=== PATIENT | male | born 1975 | race Caucasian/White ===

== ENCOUNTER 2018-09-05 12:10 | Inpatient (IN) | payer SELFPAY ==
[~2018-09-05] VITALS: Ht 167.6 cm; Wt 66.2 kg
[2018-09-05] MEDS ORDERED: [UNRECOGNIZED DRUG - CODE] IV (12:44)
[2018-09-05] MEDS ORDERED: MULTIVITAMIN1 SGL PO (12:46)
[2018-09-05] MEDS ORDERED: FOLIC ACID1 MG PO (12:46)
[2018-09-05] MEDS ORDERED: B-1100 M1 PO (12:46)
[2018-09-05 12:47] VITALS: BP 106/71
[2018-09-05 18:20] VITALS: BP 114/75
[2018-09-05 18:22] VITALS: BP 114/75
[2018-09-05 18:33] VITALS: BP 114/75
[2018-09-06 06:26] VITALS: BP 124/80
[2018-09-06 07:27] LABS: HEMATOCRIT 28.2 % (42.0-52.0); HEMOGLOBIN 9.2 g/dL (13.5-18.0); MEAN CELL VOLUME 105 fl (78-100); MEAN CORPUSCULAR HEMOGLOBIN 34 pg (27-31); MEAN CORPUSCULAR HGB CONC 33 g/dL (33-37); MEAN PLATELET VOLUME 9.1 fl (7.4-10.4); PLATELET COUNT 495 K/mm3 (130-400); RED BLOOD COUNT 2.68 M/mm3 (4.20-5.60); RED CELL DISTRIBUTION WIDTH 13.7 % (11.5-14.5); WHITE BLOOD COUNT 6.6 K/mm3 (4.8-10.8)
[2018-09-06 07:35] LABS: ALBUMIN 3.2 g/dL (3.5-5.0); CALCIUM 9.4 mg/dL (8.4-10.2); POTASSIUM 4.5 mmol/L (3.6-5.0); TOTAL BILIRUBIN 0.4 mg/dL (0.2-1.3); TOTAL PROTEIN 6.2 g/dL (6.3-8.2)
[2018-09-06 08:13] LABS: LYMPHOCYTE 23 % (20-51); MONOCYTE 16 % (3-10); NEUTROPHILS 59 % (42-75)
[2018-09-06 08:14] LABS: PH-URINE 7.5 (5.0 - 8.0); URINE APPEARANCE CLEAR; URINE BILIRUBIN NEGATIVE (NEGATIVE); URINE BLOOD NEGATIVE (NEGATIVE); URINE COLOR YELLOW; URINE GLUCOSE NEGATIVE (NEGATIVE); URINE KETONE NEGATIVE (NEGATIVE); URINE LEUKOCYTE ESTERASE NEGATIVE (NEGATIVE); URINE NITRATE NEGATIVE (NEGATIVE); URINE PROTEIN(semi-quant) NEGATIVE (NEGATIVE); URINE UROBILINOGEN NORMAL (NORMAL)
[2018-09-06 18:50] VITALS: BP 130/93
[2018-09-07 06:23] VITALS: BP 102/63
[2018-09-07 18:33] VITALS: BP 107/70
[2018-09-08 06:17] VITALS: BP 105/65
[2018-09-08 13:31] VITALS: BP 106/65
[2018-09-08 14:01] LABS: HEMATOCRIT 30.4 % (42.0-52.0); HEMOGLOBIN 9.8 g/dL (13.5-18.0); MEAN CELL VOLUME 106 fl (78-100); MEAN CORPUSCULAR HEMOGLOBIN 34 pg (27-31); MEAN CORPUSCULAR HGB CONC 32 g/dL (33-37); MEAN PLATELET VOLUME 8.8 fl (7.4-10.4); RED BLOOD COUNT 2.87 M/mm3 (4.20-5.60); RED CELL DISTRIBUTION WIDTH 13.8 % (11.5-14.5); WHITE BLOOD COUNT 5.3 K/mm3 (4.8-10.8)
[2018-09-08 14:06] LABS: ALBUMIN 3.5 g/dL (3.5-5.0); CALCIUM 9.5 mg/dL (8.4-10.2); POTASSIUM 4.4 mmol/L (3.6-5.0); TOTAL BILIRUBIN 0.4 mg/dL (0.2-1.3); TOTAL PROTEIN 6.5 g/dL (6.3-8.2)
[2018-09-08 15:09] LABS: PLATELET COUNT 579 K/mm3 (130-400)
[2018-09-08 15:19] LABS: LYMPHOCYTE 21 % (20-51); MONOCYTE 9 % (3-10); NEUTROPHILS 69 % (42-75)
[2018-09-08 15:48] VITALS: BP 125/74
[2018-09-08 18:11] VITALS: BP 100/62
[2018-09-09 06:11] VITALS: BP 111/68
[2018-09-09 06:27] VITALS: BP 111/68
[2018-09-09 18:16] VITALS: BP 113/69
[2018-09-09 18:48] VITALS: BP 110/64
[2018-09-10 06:03] VITALS: BP 107/62
[2018-09-10 06:24] VITALS: BP 107/62
[2018-09-10 18:48] VITALS: BP 103/65
[2018-09-11 06:05] VITALS: BP 114/74
[2018-09-11 06:08] VITALS: BP 114/74
[2018-09-11 08:58] LABS: HEMATOCRIT 33.5 % (42.0-52.0); HEMOGLOBIN 10.6 g/dL (13.5-18.0); MEAN CELL VOLUME 103 fl (78-100); MEAN CORPUSCULAR HEMOGLOBIN 33 pg (27-31); MEAN CORPUSCULAR HGB CONC 32 g/dL (33-37); MEAN PLATELET VOLUME 8.3 fl (7.4-10.4); RED BLOOD COUNT 3.24 M/mm3 (4.20-5.60); RED CELL DISTRIBUTION WIDTH 13.7 % (11.5-14.5); WHITE BLOOD COUNT 4.5 K/mm3 (4.8-10.8)
[2018-09-11 09:00] LABS: PLATELET COUNT 589 K/mm3 (130-400)
[2018-09-11 09:20] LABS: ALBUMIN 3.7 g/dL (3.5-5.0); CALCIUM 9.6 mg/dL (8.4-10.2); POTASSIUM 4.1 mmol/L (3.6-5.0); TOTAL BILIRUBIN 0.5 mg/dL (0.2-1.3); TOTAL PROTEIN 6.9 g/dL (6.3-8.2)
[2018-09-11 09:35] LABS: LYMPHOCYTE 32 % (20-51); MONOCYTE 11 % (3-10); NEUTROPHILS 55 % (42-75); OVALOCYTES 1+; STOMATOCYTE 2+
[2018-09-11 18:11] VITALS: BP 116/72
[2018-09-11 20:39] VITALS: BP 89/54
[2018-09-11 21:48] LABS: URINE APPEARANCE CLEAR; URINE BILIRUBIN NEGATIVE (NEGATIVE); URINE BLOOD NEGATIVE (NEGATIVE); URINE COLOR YELLOW; URINE GLUCOSE NEGATIVE (NEGATIVE); URINE KETONE NEGATIVE (NEGATIVE); URINE LEUKOCYTE ESTERASE NEGATIVE (NEGATIVE); URINE NITRATE NEGATIVE (NEGATIVE); URINE PROTEIN(semi-quant) NEGATIVE (NEGATIVE); URINE UROBILINOGEN NORMAL (NORMAL)
[2018-09-11 21:56] LABS: URINE WBC 0-1 /hpf (0-3)
[2018-09-12 06:11] VITALS: BP 115/63
[2018-09-12 18:00] VITALS: BP 111/66
[2018-09-12 19:00] VITALS: BP 115/72
[2018-09-13 06:02] VITALS: BP 107/63
[2018-09-13 06:21] VITALS: BP 107/63
[2018-09-13 18:18] VITALS: BP 109/68
[2018-09-13 18:21] VITALS: BP 109/68
[2018-09-14 05:28] VITALS: BP 106/61
[2018-09-14 06:23] VITALS: BP 91/60
[2018-09-14 18:26] VITALS: BP 110/64; BP 131/75
[2018-09-15 06:06] VITALS: BP 117/70
[2018-09-15 06:38] VITALS: BP 117/70
[2018-09-15 18:20] VITALS: BP 115/64
[2018-09-15 18:37] VITALS: BP 115/64
[2018-09-16 06:09] VITALS: BP 105/67
[2018-09-16 06:23] VITALS: BP 105/67
[2018-09-16 16:38] VITALS: BP 124/77
[2018-09-16 18:44] VITALS: BP 117/72
[2018-09-16 19:27] LABS: HEMATOCRIT 34.9 % (42.0-52.0); HEMOGLOBIN 11.2 g/dL (13.5-18.0); MEAN CELL VOLUME 103 fl (78-100); MEAN CORPUSCULAR HEMOGLOBIN 33 pg (27-31); MEAN CORPUSCULAR HGB CONC 32 g/dL (33-37); MEAN PLATELET VOLUME 9.6 fl (7.4-10.4); PLATELET COUNT 375 K/mm3 (130-400); RED BLOOD COUNT 3.38 M/mm3 (4.20-5.60); RED CELL DISTRIBUTION WIDTH 13.2 % (11.5-14.5); WHITE BLOOD COUNT 4.8 K/mm3 (4.8-10.8)
[2018-09-16 19:32] LABS: ALBUMIN 4.3 g/dL (3.5-5.0); CALCIUM 9.5 mg/dL (8.4-10.2); POTASSIUM 4.8 mmol/L (3.6-5.0); TOTAL BILIRUBIN 0.3 mg/dL (0.2-1.3); TOTAL PROTEIN 7.6 g/dL (6.3-8.2)
[2018-09-16 21:54] LABS: NEUTROPHILS 60 % (42-75)
[2018-09-16 21:55] LABS: LYMPHOCYTE 26 % (20-51); MONOCYTE 11 % (3-10)
[2018-09-17 05:58] VITALS: BP 121/73
[2018-09-17 18:00] VITALS: BP 123/74
[2018-09-18 05:46] VITALS: BP 149/91
[2018-09-18 06:23] VITALS: BP 149/91
[2018-09-18 15:21] LABS: ADRENOCORTICOTROPIC HORMONE 24 pg/mL (())
[2018-09-18 18:00] VITALS: BP 115/74
[2018-09-18 18:22] VITALS: BP 107/69
[2018-09-19 06:15] VITALS: BP 120/78
[2018-09-19 06:22] VITALS: BP 120/78
[2018-09-19 17:48] VITALS: BP 113/71
[2018-09-19 18:03] VITALS: BP 113/71
[2018-09-20 06:17] VITALS: BP 106/66
[2018-09-20 06:18] VITALS: BP 106/66
[2018-09-20 17:45] VITALS: BP 118/75; BP 188/75
[2018-09-21 05:07] VITALS: BP 108/64
[2018-09-21 06:06] VITALS: BP 108/64
[2018-09-21 18:15] VITALS: BP 114/73
[2018-09-21 18:16] VITALS: BP 114/73
[2018-09-22 06:00] VITALS: BP 104/55
[2018-09-22 06:25] VITALS: BP 104/55
[2018-09-22 06:54] LABS: HEMATOCRIT 34.9 % (42.0-52.0); MEAN CELL VOLUME 104 fl (78-100); MEAN CORPUSCULAR HEMOGLOBIN 33 pg (27-31); MEAN CORPUSCULAR HGB CONC 32 g/dL (33-37); MEAN PLATELET VOLUME 9.5 fl (7.4-10.4); PLATELET COUNT 311 K/mm3 (130-400); RED BLOOD COUNT 3.36 M/mm3 (4.20-5.60); RED CELL DISTRIBUTION WIDTH 12.6 % (11.5-14.5); WHITE BLOOD COUNT 5.4 K/mm3 (4.8-10.8)
[2018-09-22 07:49] LABS: CALCIUM 9.5 mg/dL (8.4-10.2); POTASSIUM 4.5 mmol/L (3.6-5.0)
[2018-09-22 08:04] LABS: LYMPHOCYTE 31 % (20-51); MONOCYTE 7 % (3-10); NEUTROPHILS 57 % (42-75)
[2018-09-22 18:00] VITALS: BP 117/69
[2018-09-22 18:02] VITALS: BP 117/69
[2018-09-23 05:55] VITALS: BP 119/68
[2018-09-23 06:22] VITALS: BP 119/68
[2018-09-23 18:08] VITALS: BP 125/76
[2018-09-23 18:10] VITALS: BP 125/76
[2018-09-24 06:32] VITALS: BP 112/67
[2018-09-24 06:37] VITALS: BP 112/67
[2018-09-24 18:14] VITALS: BP 133/76
[2018-09-25 06:06] VITALS: BP 119/70
[2018-09-25 18:18] VITALS: BP 113/67
[2018-09-26 06:06] VITALS: BP 107/66
[2018-09-26 06:30] VITALS: BP 107/66
[2018-09-26 18:39] VITALS: BP 121/77
[2018-09-27 05:58] VITALS: BP 115/71
[2018-09-27 06:21] VITALS: BP 115/71
[2018-09-27 18:01] VITALS: BP 121/70
[2018-09-27 18:22] VITALS: BP 121/70
[2018-09-28 06:12] VITALS: BP 112/66
[2018-09-28 18:38] VITALS: BP 127/72
[2018-09-28 18:39] VITALS: BP 122/74
[2018-09-29 06:11] VITALS: BP 118/78
[2018-09-29 06:20] VITALS: BP 118/78
[2018-09-29 18:00] VITALS: BP 114/69
[2018-09-29 19:18] VITALS: BP 114/69
[2018-09-30 06:19] VITALS: BP 118/70
[2018-09-30 06:23] VITALS: BP 118/70
[2018-09-30] MEDS ORDERED: FLORINEF 00.1 MG/TAB PO (14:50)
[2018-09-30 18:06] VITALS: BP 126/80
[2018-09-30 18:08] VITALS: BP 126/80
== END 2018-09-30 20:13 | disposition home or self-care (01) | DRG 947 ==
LOC: MED/SURG 12:10
PROVIDERS: Internal Medicine; ADMIT Nurse Practitioner Primary Care
DX: R53.81 Other malaise (principal); E43 Unspecified severe protein-calorie malnutrition; A52.3 Neurosyphilis, unspecified; Z68.1 Body mass index [BMI] 19.9 or less, adult; R62.7 Adult failure to thrive; F10.20 Alcohol dependence, uncomplicated; Z91.81 History of falling; F17.210 Nicotine dependence, cigarettes, uncomplicated; I95.1 Orthostatic hypotension
CPT/HCPCS: J0834; J1650; J2540; J7030; J7040